=== PATIENT | born 1995 | race Two or more races ===

== ENCOUNTER 2023-06-21 21:41 | Emergency (ER) | payer OTHER ==
[~2023-06-21] VITALS: Ht 172.7 cm; Wt 99.8 kg
[2023-06-21] MEDS ORDERED: NAPR-1164 PO (21:59)
[2023-06-21] MEDS ORDERED: DEXM2.5T PO (21:59)
[2023-06-21] MEDS ORDERED: ONDANSETRON 4 MG/2 ML VIAL IV ONE (23:45)
[2023-06-21] MEDS ORDERED: HYDROMORPHONE 1 MG/1 ML DISP.SYRIN IV ONE (23:45)
[2023-06-22 00:03] LABS: *URINE HCG, QUAL NEGATIVE
[2023-06-22] MEDS ORDERED: ONDANSETRON 4 MG/2 ML VIAL ONE (00:04)
[2023-06-22] MEDS ORDERED: HYDROMORPHONE 1 MG/1 ML DISP.SYRIN ONE ×2 (00:04→02:07)
[2023-06-22] MEDS ORDERED: IV NORMAL SALINE 250 ML IV ONE (00:33)
[2023-06-22] MEDS ORDERED: IOHEXOL 300MG/ML 100 ML INFUS..BTL ONE (00:33)
[2023-06-22] MEDS ORDERED: SWABABLE VALVE TRANSFER SET EA MC ONE (00:33)
[2023-06-22] MEDS ORDERED: HYDROMORPHONE 1 MG/1 ML DISP.SYRIN IV ONE (02:00)
[2023-06-22] MEDS ORDERED: HYDR-3980 PO (02:47)
[2023-06-22] MEDS ORDERED: ONDA4TAB11 PO (02:47)
[2023-06-22 02:56] VITALS: BP 124/69; TEMP 98.5; O2SAT 100
== END 2023-06-22 02:57 | disposition home or self-care (01) ==
LOC: EDSEX 21:41 → ER 21:41
DX: S30.1XXA Contusion of abdominal wall, initial encounter (principal); S20.211A Contusion of right front wall of thorax, initial encounter; R10.2 Pelvic and perineal pain; F17.200 Nicotine dependence, unspecified, uncomplicated; Z79.899 Other long term (current) drug therapy; V89.2XXA Person injured in unspecified motor-vehicle accident, traffic, initial encounter; Y93.89 Activity, other specified; Y92.89 Other specified places as the place of occurrence of the external cause; Y99.8 Other external cause status
CPT/HCPCS: 71045; 84703; A4606; A4663; J1170; J2405; Q9967